=== PATIENT | female | born 1950 | race African-American/Black ===

== ENCOUNTER 2016-05-01 03:00 | Emergency (ER) | payer MEDICARE ==
[2016-05-01] MEDS ORDERED: ACETAMINOPHEN 325 MG TABLET PO ONE (05:15)
--- NOTE | 2016-05-01 06:23 | ER Document Report ---
ED General - General Chief Complaint: Foot Pain Stated Complaint: SWOLLEN FEET Mode of Arrival: Ambulatory Information source: Patient Notes: 65-year-old female history of diabetes chronic kidney disease recent diagnosis of cellulitis which improved after Keflex in March but returned presents with complaints of bilateral lower extremity redness. Redness is limited to the heel and sore both feet is not associated with any fevers or any swelling in the extremities. Patient denies any shortness of breath difficulty breathing TRAVEL OUTSIDE OF THE [place] IN LAST 30 DAYS: No - HPI Onset: Last week Onset/Duration: Persistent Quality of pain: Burning Severity: Mild Pain Level: 1 Associated symptoms: None Exacerbated by: Movement, Walking Relieved by: Other Similar symptoms previously: Yes Recently seen / treated by doctor: Yes - Related Data Allergies/Adverse Reactions: No Known Allergies Allergy (Verified 03/22/16 11:21) Past Medical History - General Information source: Patient, Relative - Social History Smoking Status: Never Smoker Cigarette use (# per day): No Chew tobacco use (# tins/day): No Smoking Education Provided: No Family History: Reviewed & Not Pertinent - Past Medical History Cardiac Medical History: Reports: Hx Coronary Artery Disease, Hx Hypercholesterolemia, Hx Hypertension Denies: Hx Heart Attack Pulmonary Medical History: Denies: Hx Asthma, Hx Bronchitis, Hx COPD, Hx Pneumonia, Hx Tuberculosis Neurological Medical History: Reports: Hx Cerebrovascular Accident - 2011,2013. Denies: Hx Seizures Endocrine Medical History: Reports: Hx Diabetes Mellitus Type 1, Hx Diabetes Mellitus Type 2 Renal/ Medical History: Reports: Hx End Stage Renal Disease, Hx Hemodialysis - Sat, Sat, Sat Musculoskeltal Medical History: Reports Hx Arthritis - mild Psychiatric Medical History: Reports: Hx Anxiety Past Surgical History: Reports: Hx Appendectomy, Hx Cardiac Surgery - right carotid endarterectomy, Hx Tubal Ligation - Immunizations Immunizations up to date: Yes Hx Diphtheria, Pertussis, Tetanus Vaccination: Yes Review of Systems - Review of Systems Notes: REVIEW OF SYSTEMS: CONSTITUTIONAL : Denies fever, chills, or sweats. Denies recent illness. EENT: Denies eye, ear, throat, or mouth pain or symptoms. Denies nasal or sinus congestion or discharge. Denies throat, tongue, or mouth swelling or difficulty swallowing. CARDIOVASCULAR: Denies chest pain. Denies palpitations or racing or irregular heart beat. Denies ankle edema. RESPIRATORY: Denies cough, cold, or chest congestion. Denies shortness of breath, difficulty breathing, or wheezing. GASTROINTESTINAL: Denies abdominal pain or distention. Denies nausea, vomiting , or diarrhea. Denies blood in vomitus, stools, or per rectum. Denies black, tarry stools. Denies constipation. GENITOURINARY: Denies difficulty urinating, painful urination, burning, frequency, blood in urine, or discharge. FEMALE GENITOURINARY: Denies vaginal bleeding, heavy or abnormal periods, irregular periods. Denies vaginal discharge or odor. MUSCULOSKELETAL: Denies back or neck pain or stiffness. Denies joint pain or swelling. SKIN: Admits to redness of the soles of feet HEMATOLOGIC : Denies easy bruising or bleeding. LYMPHATIC: Denies swollen, enlarged glands. NEUROLOGICAL: Denies confusion or altered mental status. Denies passing out or loss of consciousness. Denies dizziness or lightheadedness. Denies headache. Denies weakness or paralysis or loss of use of either side. Denies problems with gait or speech. Denies sensory loss, numbness, or tingling. Denies seizures. PSYCHIATRIC: Denies anxiety or stress. Denies depression, suicidal ideation, or homicidal ideation. ALL OTHER SYSTEMS REVIEWED AND NEGATIVE. Dictation was performed using [employer] voice recognition software PHYSICAL EXAMINATION: GENERAL: Well-appearing, well-nourished and in no acute distress. HEAD: Atraumatic, normocephalic. EYES: Pupils equal round and reactive to light, extraocular movements intact, conjunctiva are normal. ENT: Nares patent, oropharynx clear without exudates. Moist mucous membranes. NECK: Normal range of motion, supple without lymphadenopathy LUNGS: Breath sounds clear to auscultation bilaterally and equal. No wheezes rales or rhonchi. HEART: Regular rate and rhythm without murmurs ABDOMEN: Soft, nontender, nondistended abdomen. No guarding, no rebound. No masses appreciated. Female : deferred Musculoskeletal: Normal range of motion, no pitting or edema. No cyanosis. NEUROLOGICAL: Cranial nerves grossly intact. Normal speech, normal gait. Normal sensory, motor exams PSYCH: Normal mood, normal affect. SKIN: Bilateral heel sore redness superficial abrasion of the left foot at the first metacarpal without any pus no other specific injuries noted Physical Exam - Vital signs Vitals: Temp Pulse Resp BP Pulse Ox 98.1 F 81 12 184/86 H 100 05/01/16 03:31 05/01/16 03:31 05/01/16 03:31 05/01/16 03:31 05/01/16 03:31 Course - Re-evaluation Re-evalutation: 05/01/16 07:32 Given the patient had dialysis yesterday is afebrile has no systemic signs of infection I do not believe lab work is necessary at this time. Patient will be started on antibiotics, patient is given podiatry follow-up as she has not seen a sales porter in a few years Multiple questions answered I spent 15 minutes in the room with family After performing a Medical Screening Examination, I estimate there is LOW risk for ACUTE CORONARY SYNDROME, RESPIRATORY FAILURE, SEPSIS OR MENINGITIS, thus I consider the discharge disposition reasonable. The patient and I have discussed the diagnosis and risks, and we agree with discharging home with close follow- up. We also discussed returning to the Emergency Department immediately if new or worsening symptoms occur. We have discussed the symptoms which are most concerning (e.g., changing or worsening pain, trouble swallowing or breathing, neck stiffness, fever) that necessitate immediate return. - Vital Signs Vital signs: Temp Pulse Resp BP Pulse Ox 98.2 F 73 18 174/70 H 100 05/01/16 06:40 05/01/16 06:40 05/01/16 06:40 05/01/16 06:40 05/01/16 06:40 Discharge - Discharge Clinical Impression: Chronic renal disease, stage 3, moderately decreased glomerular filtration rate (GFR) between 30-59 mL/min/1.73 square meter Cellulitis Qualifiers: Site of cellulitis: extremity Site of cellulitis of extremity: lower extremity Laterality: unspecified laterality Qualified Code(s): L03.119 - Cellulitis of unspecified part of limb Hypertension Qualifiers: Hypertension type: essential hypertension Qualified Code(s): I10 - Essential ( primary) hypertension Condition: Stable Disposition: HOME, SELF-CARE Instructions: Cellulitis ([facility]), Control of Diabetes During Illness ([facility]) Additional Instructions: Return immediately if there are any other concerns Prescriptions: Doxycycline Hyclate 100 mg PO BID #14 capsule Hydrocodone/Acetaminophen [[place] 5-325 mg Tablet] 1 tab PO Q6 #10 tablet Referrals: JACQUELINE FARIA MD [Primary Care Provider] - Follow up as needed MONICO SELBY DPM [ACTIVE STAFF] - Follow up tomorrow
[2016-05-01] MEDS ORDERED: DOXYCYCLINE HYCLATE 100 MG TABLET PO ONE (06:43)
[2016-05-01 06:45] VITALS: BP 174/70
== END 2016-05-01 06:55 | disposition home or self-care (01) ==
LOC: ER 03:00
DX: I12.9 Hypertensive chronic kidney disease with stage 1 through stage 4 chronic kidney disease, or unspecified chronic kidney disease (principal); N18.3 Chronic kidney disease, stage 3 (moderate); L03.119 Cellulitis of unspecified part of limb; I25.10 Atherosclerotic heart disease of native coronary artery without angina pectoris; E78.00 Pure hypercholesterolemia, unspecified; E11.9 Type 2 diabetes mellitus without complications; Z86.73 Personal history of transient ischemic attack (TIA), and cerebral infarction without residual deficits; Z99.2 Dependence on renal dialysis
CPT/HCPCS: 99283; A9270 ×2

== ENCOUNTER 2016-05-04 00:04 | Emergency (ER) | payer MEDICARE ==
[2016-05-04] MEDS ORDERED: HYDRALAZINE HCL 50 MG TABLET PO ONE (03:09)
--- NOTE | 2016-05-04 03:20 | ER Document Report ---
ED General - General Chief Complaint: Abnormal Lab Results Stated Complaint: ABNORMAL LABS Mode of Arrival: Ambulatory Information source: Patient Notes: Patient is a 65-year-old -[place] female who presents to the ER today for positive blood culture result of gram-negative rods. Patient was called by her nurse's aides teacher rd and told to come to the emergency department because of this culture results. Apparently they avinash the blood cultures while she was in dialysis on Saturday (today is Saturday am) and was having chills and nausea and vomiting. Patient was recently diagnosed with cellulitis of the left foot and has been on doxycycline for 3 days. She denies any other symptoms, states that she has felt better since 2 days ago. She does have dialysis this morning. TRAVEL OUTSIDE OF THE [place] IN LAST 30 DAYS: No - Related Data Allergies/Adverse Reactions: No Known Allergies Allergy (Verified 05/04/16 00:13) Past Medical History - General Information source: Patient, Relative - Social History Smoking Status: Never Smoker Chew tobacco use (# tins/day): No Frequency of alcohol use: None Drug Abuse: None Family History: Reviewed & Not Pertinent Patient has suicidal ideation: No Patient has homicidal ideation: No - Past Medical History Cardiac Medical History: Reports: Hx Coronary Artery Disease, Hx Hypercholesterolemia, Hx Hypertension Denies: Hx Heart Attack Pulmonary Medical History: Denies: Hx Asthma, Hx Bronchitis, Hx COPD, Hx Pneumonia, Hx Tuberculosis Neurological Medical History: Reports: Hx Cerebrovascular Accident - 2011,2013. Denies: Hx Seizures Endocrine Medical History: Reports: Hx Diabetes Mellitus Type 1, Hx Diabetes Mellitus Type 2 Renal/ Medical History: Reports: Hx End Stage Renal Disease, Hx Hemodialysis - Sat, Sat, Sat Musculoskeltal Medical History: Reports Hx Arthritis - mild Psychiatric Medical History: Reports: Hx Anxiety Past Surgical History: Reports: Hx Appendectomy, Hx Cardiac Surgery - right carotid endarterectomy, Hx Hysterectomy, Hx Tubal Ligation - Immunizations Immunizations up to date: Yes Hx Diphtheria, Pertussis, Tetanus Vaccination: Yes Review of Systems - Review of Systems Constitutional: See HPI EENT: No symptoms reported Cardiovascular: No symptoms reported Respiratory: No symptoms reported Gastrointestinal: No symptoms reported Genitourinary: No symptoms reported Female Genitourinary: No symptoms reported Musculoskeletal: No symptoms reported Skin: See HPI Hematologic/Lymphatic: No symptoms reported Neurological/Psychological: No symptoms reported Physical Exam - Vital signs Vitals: Temp Pulse Resp BP Pulse Ox 98.5 F 94 20 190/98 H 99 05/04/16 00:13 05/04/16 00:13 05/04/16 00:13 05/04/16 00:13 05/04/16 00:13 - Notes Notes: PHYSICAL EXAMINATION: GENERAL: chronically ill appearing, appears older than stated age, but not acutely ill and in no acute distress. HEAD: Atraumatic, normocephalic. EYES: Pupils equal round and reactive to light, extraocular movements intact, sclera anicteric, conjunctiva are normal. ENT: ear canals without erythema or foreign body, TMs pearly jansen with good bony landmarks, nares patent, oropharynx clear without exudates. Moist mucous membranes. NECK: Normal range of motion, supple without lymphadenopathy LUNGS: CTAB and equal. No wheezes rales or rhonchi. HEART: Regular rate and rhythm without murmurs ABDOMEN: Soft, no tenderness. No guarding, no rebound EXTREMITIES: Normal range of motion, no pitting edema. No cyanosis. NEUROLOGICAL: Cranial nerves grossly intact. Normal sensory/motor exams. PSYCH: Normal mood, normal affect. SKIN: Warm, Dry, normal turgor, erythema to left heel and ball of foot only, no pitting or non-pitting edema, not tender to palpation, no drainage Course - Re-evaluation Re-evalutation: 05/04/16 06:46 Patient's labwork is actually at her baseline with a white blood cell count is not elevated. She is afebrile. She came in hypertensive the blood pressure of 200/104, however did not take her blood pressure medication today. She was given a dose of her blood pressure medication here, hydralazine 50 mg which brought her blood pressure down to 155/75. She has dialysis this morning, I would like for her to make it to that. She is only been on doxycycline for 3 days. I advised that she continues that for her cellulitis. Her cellulitis does not appear to be worse than exam documented 3 days ago when she was diagnosed with it. 05/04/16 06:46 05/04/16 07:07 urine negative for infection. At this time pt appears very well, paged Dr. Ibarra, waiting ethylbenzene converter operator back. blood cultures have been taken here and are pending. I will add Keflex to regimen. 05/04/16 07:34 Dr. bIarra called back, states he wants to give her ceftazidine in dialysis today instead of oral keflex. Family agrees with plan. 05/04/16 07:36 - Vital Signs Vital signs: Temp Pulse Resp BP Pulse Ox 98.6 F 77 14 155/52 H 97 05/04/16 05:59 05/04/16 05:59 05/04/16 05:59 05/04/16 05:59 05/04/16 05:59 - Laboratory Result Diagrams: 05/04/16 04:21 05/04/16 04:21 Laboratory results interpreted by me: 05/04/16 05/04/16 05/04/16 04:21 04:21 06:22 WBC 3.1 L Plt Count 120 L Monocytes % 13.4 H Sodium 135.6 L Chloride 97 L BUN 67 H Creatinine 6.76 H Est GFR ( Amer) 7 L Est GFR (Non-Af Amer) 6 L Urine Protein >=500 H Urine Blood SMALL H Discharge - Discharge Clinical Impression: Cellulitis Qualifiers: Site of cellulitis: extremity Site of cellulitis of extremity: lower extremity Laterality: unspecified laterality Qualified Code(s): L03.119 - Cellulitis of unspecified part of limb Condition: Stable Disposition: HOME, SELF-CARE Instructions: Cellulitis ([facility]) Additional Instructions: Continue doxycycline. Return immediately for any new or worsening symptoms. Follow up with primary care provider, call tomorrow to make followup appointment.
[2016-05-04 04:44] LABS: ABSOLUTE LYMPHOCYTES (AUTO) 0.8 10^3/uL (0.5-4.7); ABSOLUTE MONOCYTES (AUTO) 0.4 10^3/uL (0.1-1.4); ABSOLUTE NEUT (AUTO) 1.9 10^3/uL (1.7-8.2); BASOPHILS % (AUTO) 0.8 % (0-2); EOSINOPHILS % (AUTO) 0.7 % (0-6); HEMATOCRIT 37.4 % (36.0-47.0); HEMOGLOBIN 12.9 g/dL (12.0-15.5); HGB HCT DIFFERENCE 1.3; LYMPHOCYTES % (AUTO) 26.1 % (13-45); MEAN CORPUSCULAR HEMOGLOBIN 30.8 pg (27.0-33.4); MEAN CORPUSCULAR HGB CONC 34.4 g/dL (32.0-36.0); MEAN CORPUSCULAR VOLUME 90 fl (80-97); MONOCYTES % (AUTO) 13.4 % (3-13); RED BLOOD COUNT 4.18 10^6/uL (3.72-5.28); WHITE BLOOD COUNT 3.1 10^3/uL (4.0-10.5)
[2016-05-04 04:48] LABS: ALANINE AMINOTRANSFERASE 27 U/L (9-52); ALBUMIN 3.9 g/dL (3.5-5.0); ALKALINE PHOSPHATASE 68 U/L (38-126); ANION GAP 12 (5-19); ASPARTATE AMINO TRANSFERASE 29 U/L (14-36); BILIRUBIN,TOTAL 0.4 mg/dL (0.2-1.3); BLOOD UREA NITROGEN 67 mg/dL (7-20); CALCIUM 9.1 mg/dL (8.4-10.2); CARBON DIOXIDE 27 mmol/L (22-30); CHLORIDE 97 mmol/L (98-107); CREATININE RESULT 6.76 mg/dL (0.52-1.25); GLUCOSE 100 mg/dL (75-110); POTASSIUM 4.8 mmol/L (3.6-5.0); SODIUM 135.6 mmol/L (137-145); TOTAL PROTEIN 6.7 g/dL (6.3-8.2)
[2016-05-04 06:47] LABS: APPEARANCE,URINE SLIGHTLY-CLOUDY; BILIRUBIN,URINE NEGATIVE (NEGATIVE); GLUCOSE, URINE NEGATIVE (NEGATIVE); KETONES,URINE NEGATIVE (NEGATIVE); LEUKOCYTE ESTERASE,URINE NEGATIVE (NEGATIVE); NITRITE,URINE NEGATIVE (NEGATIVE); PROTEIN,URINE >=500 mg/dL (NEGATIVE); UROBILINOGEN,URINE NEGATIVE mg/dL (<2.0)
[2016-05-04 08:35] VITALS: BP 168/56
== END 2016-05-04 07:58 | disposition home or self-care (01) ==
LOC: ER 00:04
DX: L03.116 Cellulitis of left lower limb (principal); R11.2 Nausea with vomiting, unspecified; R68.83 Chills (without fever); E11.22 Type 2 diabetes mellitus with diabetic chronic kidney disease; I12.0 Hypertensive chronic kidney disease with stage 5 chronic kidney disease or end stage renal disease; N18.6 End stage renal disease; Z99.2 Dependence on renal dialysis; I25.10 Atherosclerotic heart disease of native coronary artery without angina pectoris; Z86.73 Personal history of transient ischemic attack (TIA), and cerebral infarction without residual deficits; Z79.899 Other long term (current) drug therapy
CPT/HCPCS: 99283; 36415; 87040; 87086; 85025; 80053; 81001; A9270

== ENCOUNTER 2016-05-04 12:39 | Day surgery (SDC) | payer MEDICARE ==
[~2016-05-04 12:39] MED LIST: BACITRACIN INJ 50,000 UNIT VIAL ONE; BUPIVACAINE HCL 0.25 % INJ/PF (2.5 MG/1 ML) 30 ML VIAL ONE; GLYCOPYRROLATE INJ 0.4 MG/2 ML VIAL ONE; LIDOCAINE 0.5% INJ-PF (5 MG/ML) 50 ML SDV ONE; LIDOCAINE 2% INJ-PF (20 MG/ML) 10 ML AMPUL ONE; ONDANSETRON HCL INJ/PF 4 MG/2 ML SDV ONE
[2016-05-04] MEDS ORDERED: CEFAZOLIN INJ 1 GM VIAL ONE (13:29)
[2016-05-04] MEDS: DEXTROSE 50%-WATER 25 GM/50 ML DISP.SYRIN IV ONE ×2 (15:20→15:43)
[2016-05-04] MEDS ORDERED: KETAMINE HCL INJ 500 MG/10 ML VIAL ONE (15:21)
[2016-05-04] MEDS ORDERED: MIDAZOLAM 2 MG/2 ML INJ ONE (15:21)
[2016-05-04] MEDS ORDERED: FENTANYL CITRATE INJ/PF 100 MCG/2 ML AMPUL ONE (15:21)
[2016-05-04] MEDS ORDERED: DEXMEDETOMIDINE INJ 80 MCG/20 ML VIAL IV ONE (15:22)
[2016-05-04] MEDS ORDERED: PROPOFOL INJ 200 MG/20 ML VIAL IV ONE (15:22)
--- NOTE | 2016-05-04 16:19 | PDOC H&P ---
General Chief Complaint: Septicemia, positive blood culture. Infected Perm cath. - Diagnosis (1) Bacteremia associated with intravascular line Is this a Current Diagnosis?: Yes (2) ESRD (end stage renal disease) on dialysis Is this a Current Diagnosis?: Yes (4) Diabetes mellitus type 2, controlled Is this a Current Diagnosis?: Yes - Current Medications/Allergies Home Medications: Aspirin [Aspirin 81 mg Chewable Tablet] 81 mg PO DAILY 06/04/14 Hydralazine HCl [Apresoline 50 mg Tablet] 100 mg PO TID 06/04/14 Sevelamer Carbonate [Renvela] 800 mg PO TID 01/03/16 Allergies/Adverse Reactions: No Known Allergies Allergy (Verified 05/04/16 00:13) Past Medical History Cardiac Medical History: Reports: Coronary Artery Disease, Hyperlipidema, Hypertension Denies: Myocardial Infarction Pulmonary Medical History: Denies: Asthma, Bronchitis, Chronic Obstructive Pulmonary Disease (COPD), Pneumonia, Tuberculosis Neurological Medical History: Denies: Seizures Endocrine Medical History: Reports: Diabetes Mellitus Type 1, Diabetes Mellitus Type 2 Renal/ Medical History: Reports: End Stage Renal Disease Musculoskeltal Medical History: Reports: Arthritis - mild Hematology: Denies: Anemia Past Surgical History Past Surgical History: Reports: Appendectomy, Hysterectomy, Tubal Ligation Family History Family History: Reviewed & Not Pertinent Parental Family History Reviewed: Yes Children Family History Reviewed: No Sibling(s) Family History Reviewed.: No Social History Smoking Status: Never Smoker Frequency of Alcohol Use: None Hx Recreational Drug Use: No Drugs: None Hx Prescription Drug Abuse: No Physical Exam Vital Signs: Temp Pulse Resp BP Pulse Ox 98.3 F 78 16 196/86 H 100 05/04/16 13:08 05/04/16 13:08 05/04/16 13:08 05/04/16 13:08 05/04/16 13:08 Intake & Output 05/03/16 05/04/16 05/05/16 06:59 06:59 06:59 Intake Total 0 Balance 0 Additional comments: . A WDWN lady. Mildly increased body habitus. No acute distress. Eyes membranes is pink and moist, sclerae anicteric. Respiratory no shortness of breath. Breath sounds are normal and equal bilaterally. Chest: A right-sided PermCath is noted. The cuff is out in this supports. He of infection. No gross purulence or erythema. Cardiac: Heart sounds 1 and 2 heard, no murmurs. Upper extremities show normal range of movement and pulsatile to the radials. Normal capillary refill. A cephalic to brachial fistula is appreciated. In the left upper extremity. Somewhat firm, due to wall thickness. Good bruit.. Psychiatric the patient is alert, oriented, judgment, memory, insight normal Impression/Plan Impression: #1 bacteremia associated with partly dislodged permacatheter. #2 end-stage renal disease on hemodialysis. #3 diabetes mellitus type II. #4 hypertension. Plan: The plan is to insert a new perm catheter, hopefully through the left internal jugular and remove old. As a last resort remain E to replace the existing site. This is somewhat less desirable. At any rate the patient will need to be on IV antibiotic for several weeks for this potentially serious infection. The risks, benefits, expected outcome and alternatives are related to the patient and her daughters. Her questions and concerns addressed and he wished to proceed. Parallel plans for insertion of a graft in the left arm fistula to compensate for a really unusual finding of a thick wall making it unusable currently.
[2016-05-04] MEDS ORDERED: VANCOMYCIN HCL INJ 1000 MG VIAL ONE (16:59)
[2016-05-04] MEDS ORDERED: MEPERIDINE HCL/PF INJ 25 MG/1 ML DISP.SYRIN IV PRN (17:18)
[2016-05-04] MEDS ORDERED: OXYCODONE-ACETAMINOPHEN 5-325 MG TABLET PO PRN ×2 (17:18)
[2016-05-04] MEDS ORDERED: FENTANYL CITRATE INJ/PF 100 MCG/2 ML AMPUL IV PRN ×3 (17:18)
[2016-05-04] MEDS ORDERED: MORPHINE SULFATE 10 MG/ML INJ IV PRN (17:18)
[2016-05-04] MEDS ORDERED: PROMETHAZINE HCL INJ 25 MG/1 ML VIAL IV PRN ×2 (17:18)
[2016-05-04] MEDS ORDERED: DIPHENHYDRAMINE HCL 50 MG/ML VIAL IV PRN (17:18)
--- NOTE | 2016-05-04 18:17 | PDOC DISCHARGE SUMMARY ---
Discharge Summary (SDC) - Discharge Final Diagnosis: #1 sepsis possibly associated with intravascular catheter. #2 end-stage renal disease on hemodialysis. #3 beat is mellitus type II. #4 hypertension. Date of Surgery: 05/04/16 Discharge Date: 05/04/16 Condition: Poor Treatment or Instructions: #1 activities within moderation encouraged. #2 follow up in my office by appointment in about 1 week. Call for appointment. #3 the wounds covered clean and dry until office visit. #4 hold off on school/work until evaluation in office. #5 may shower in 48 hours, keep operated area as dry as possible. #6 discharge from [facility] to when ASU criteria met. #7 medications per medication reconciliation sheet. Referrals: JACQUELINE FARIA MD [Primary Care Provider] - RACHID BARBA MD [ACTIVE STAFF] - Discharge Diet: Other (Comments) - Renal Respiratory Treatments at Home: Deep Breathing/Coughing Discharge Activity: Activity As Tolerated Report the Following to Your Physician Immediately: Shortness of Breath, Unusual Bleeding
--- NOTE | 2016-05-04 18:23 | Operative Report ---
Operative Report DATE OF SURGERY: 05/04/16 PREOPERATIVE DIAGNOSIS: #1 bacteremia associated with intravascular catheter. # 2 end-stage renal disease on hemodialysis. #3 diabetes mellitus type II. #4 hypertension. POSTOPERATIVE DIAGNOSIS: #1 bacteremia associated with intravascular catheter. #2 end-stage renal disease on hemodialysis. #3 diabetes mellitus type II. #4 hypertension. OPERATION: #1 ultrasound guided access into left internal jugular vein. #2 insertion of PermCath catheter via established assess in the right internal jugular vein. #3 angiogram and interpretation. SURGEON: RACHID WEBB SHEAR SETTER: none ANESTHESIA: LMAC TISSUE REMOVED OR ALTERED: None COMPLICATIONS: None ESTIMATED BLOOD LOSS: 5 mL. INTRAOPERATIVE FINDINGS: Of an extremely small left internal jugular vein. Diligent attempts at access were completely on X unsuccessful. Even with a fluid bolus and the patient in Trendelenburg the vein was now more than diameter and virtually impossible to see just above the clavicle. The patient really has no great options. She has cellulitis in the lower extremities which make a femoral catheter even more than usually risky. The right internal jugular vein was therefore used for access. The exit site was kept well away from the previous exit site. Patient will be kept on antibiotics for several weeks in the hope of preserving this catheter while a more robust access is obtained. The tip of the catheter was well down in the right atrium. Of note flow through the right atrium ventricle and pulmonary outflow tract were unusually slow suggesting myocardial dysfunction. PROCEDURE: After obtaining informed consent, the patient was taken to the operating room and positioned supine. The left neck and around the surrounding areas were prepared with chlorhexidine and draped out with sterile linen. Local anesthesia was obtained adjacent to the sterilely sheathed ultrasound probe and access attempted with a micropuncture needle. Even with the patient in Trendelenburg and after fluid bolus it proved impossible to gain robust access. This was attempted for a solid for 30 minutes. At this time this site was abandoned. The right neck and chest were prepared with chlorhexidine and draped out with sterile linen. This was done so as to isolate the existing catheter right and a bridge of skin well away from the operative site. After the " universal timeout", in which it was verified that the patient continued to receive antibiotic, the procedure commenced. e. Access into the right internal jugular vein was obtained directly through an incision over the access site to the neck. Dissection proceeded down to the catheter which was transected. The proximal portion replaced with a 0.035 guidewire. Appropriate introducer sheath was now placed over the guidewire.. A 23 cm long split catheter was now positioned over the chest and an exit site marked and locally anesthetized ,the catheter was placed between the 2 incisions. Proximally, the catheter was now positioned using a peel-away sheath, after dilation. Easy ingress of heparinized solution and egress of blood obtained through both ports. A completion angiogram was done by injecting contrast. The findings were as dictated. The neck incision was now closed using interrupted 3-0 PDS to the subcutaneous tissues, the catheter was anchored at the exit site using 3-0 PDS. A Biopatch device was now placed adjacent to the catheter. Dressings were applied and the procedure concluded. Copies of the dictated operative report for Dr. Rachid Hylton MD.concluded. Copies of the dictated operative report for Dr. Rachid Hylton MD.
[2016-05-04 22:09] VITALS: BP 196/86
== END 2016-05-04 23:42 | disposition home or self-care (01) ==
LOC: OROUT 12:39 → 4W 19:38 → OROUT 23:42
PROVIDERS: ATTEND Surgery
PROC: 05HN33Z Insertion of Infusion Device into Left Internal Jugular Vein, Percutaneous Approach (ICD-10-PCS; principal; 2016-05-04 15:00)
DX: I12.0 Hypertensive chronic kidney disease with stage 5 chronic kidney disease or end stage renal disease (principal); N18.6 End stage renal disease; A41.53 Sepsis due to Serratia; Z99.2 Dependence on renal dialysis; Z79.82 Long term (current) use of aspirin; Z79.899 Other long term (current) drug therapy; I25.110 Atherosclerotic heart disease of native coronary artery with unstable angina pectoris; E87.5 Hyperkalemia; E10.9 Type 1 diabetes mellitus without complications
CPT/HCPCS: 36558; 99283; 36415; 87040; 87086; 87070; 82962; 85025; 87077; 80053; 81001; 87186; 71010; 77001; C1713; C1752; Q9967; J2250; J3490 ×6; J0690; A9270; J2405; J2704; J3370; J1644; 532; J3010

== ENCOUNTER → 2016-05-24 | Outpatient (CLI) | payer MEDICARE ==
--- NOTE | 2016-05-24 12:47 | XCELERA REPORT ---
[address] [address] Lower Extremity Arterial Evaluation Name: JESSI CAMARGO Age: 65 yrs Gender: Female : 1950 Patient Status: Outpatient Patient Location: Study Date: 05/24/2016 11:31 AM Procedure: A color flow and duplex scan of the lower extremity arteries was performed bilaterally with velocity and waveform anaylsis. Reason For Study: BLE ATHEROSCLEROSIS I70.90 Ordering Physician: RACHID BARBA Performed By: José Pathak Measurements and Calculations Right Left HOT DOG VENDOR PSV 146.1 118.0 cm/sec Prox PFA PSV -120.1 cm/sec Prox SFA PSV 202.0 -50.2 cm/sec Mid SFA PSV -65.4 -72.0 cm/sec Dist SFA PSV -97.4 -42.2 cm/sec Prox Pop A PSV 79.4 49.9 cm/sec Dist JACIEL PSV 45.4 cm/sec Prox CUT OUT WORKER PSV 64.0 cm/sec Ric Pedis PSV 47.1 32.3 cm/sec Right Side Arterial Evaluation Normal velocity, waveform and triphasic flow are present, in the Common Femoral artery. Biphasic then occluded with monophasic reconstitution in the Femoral. Monophasic, attenuated flow in the Anterior Tibial artery, no flow in the Posterior Tibial artery. The ankle-brachial index was not done. 0cclusion is noted at the Femoral artery. With sequential disease. Left Side Arterial Evaluation Normal velocity, waveform and triphasic flow are present, in the Common Femoral artery. Monophasic in the Femoral. Monophasic, severely attenuated flow in the Dorsalis pedis artery, no flow in the Posterior Tibial artery. The ankle-brachial index was not done. 0cclusion is noted at the Femoral artery. With severe sequential disease. Interpretation Summary Severe hemodynamically significant lesions in the bilateral lower extremities, on duplex imaging, at rest. Much worse on the left, consistent with limb threat. : RACHID BARBA > Rachid Barba
== END ==
LOC: SP 11:11
PROVIDERS: ATTEND Surgery
DX: I70.90 Unspecified atherosclerosis (principal)
CPT/HCPCS: 93925

== ENCOUNTER → 2016-09-06 | Outpatient (CLI) | payer MEDICARE, OTHER ==
--- NOTE | 2016-09-07 16:24 | XCELERA REPORT ---
[address] [address] Lower Extremity Arterial Evaluation Name: JESSI CAMARGO Age: 66 yrs Gender: Female : 1950 Patient Status: Outpatient Patient Location: Study Date: 09/06/2016 03:17 PM Procedure: A color flow and duplex scan of the lower extremity arteries was performed bilaterally with velocity and waveform anaylsis. Reason For Study: PAD Ordering Physician: KING RODRIGUEZ Performed By: José Pathak Measurements and Calculations Right Left COAL INSPECTOR PSV 96.2 129.5 cm/sec Prox PFA PSV -205.4 -141.4 cm/sec Prox SFA PSV 114.1 158.1 cm/sec Mid SFA PSV -49.3 -61.6 cm/sec Dist SFA PSV -101.3 -48.3 cm/sec Dist Pop A PSV 39.3 34.5 cm/sec Prox JACIEL PSV 11.4 cm/sec Dist JACIEL PSV 34.2 15.7 cm/sec Ric Pedis PSV 28.1 7.9 cm/sec Right Side Arterial Evaluation Normal velocity and triphasic waveforms noted in the Common Femoral artery Occluded Femoral with monophasic reconstitution to the Anterior Tibial artery, with spectral broadening, moderately maintained velocity. No flow in the Posterior tibial artery . Occlusion at the Femoral artery. With sequential disease. Ankle Brachial index was not done. Left Side Arterial Evaluation Normal velocity and triphasic waveforms noted in the Common Femoral artery Biphasic in the Femoral with monophasic reconstitution to the Anterior Tibial artery, with spectral broadening, poorly maintained velocity, trickle flow. No flow in the Posterior tibial artery . Occlusion at the Femoral artery. With sequential disease. Ankle Brachial index was not done. Interpretation Summary Severe hemodynamically significant lesions in the bilateral lower extremities, on duplex imaging, at rest. Some improvement on left, compared with study of 05/24/16. Still severe though. : KING RODRIGUEZ > Rick Hylton
== END ==
LOC: SP 15:00
PROVIDERS: ATTEND Surgery Vascular Surgery
DX: I70.222 Atherosclerosis of native arteries of extremities with rest pain, left leg (principal); I70.221 Atherosclerosis of native arteries of extremities with rest pain, right leg
CPT/HCPCS: 93925

== ENCOUNTER 2016-10-04 16:21 | Emergency (ER) | payer MEDICARE, OTHER ==
--- NOTE | 2016-10-04 16:50 | RADIOLOGY REPORT (SQ) ---
EXAM DESCRIPTION: CHEST SINGLE VIEW COMPLETED DATE/TIME: 10/04/2016 4:42 pm REASON FOR STUDY: bed 7 stroke alert COMPARISON: 05/04/2016 EXAM PARAMETERS: NUMBER OF VIEWS: One view. TECHNIQUE: Single frontal radiographic view of the chest acquired. RADIATION DOSE: NA LIMITATIONS: None. FINDINGS: LUNGS AND PLEURA: No opacities, masses or pneumothorax. No pleural effusion. MEDIASTINUM AND HILAR STRUCTURES: No masses. Contour normal. HEART AND VASCULAR STRUCTURES: Heart normal in size. Normal vasculature. BONES: No acute findings. HARDWARE: Left axillary clips. OTHER: Stable position of right-sided central line. IMPRESSION: NO ACUTE RADIOGRAPHIC FINDING IN THE CHEST. TECHNICAL DOCUMENTATION: JOB ID: [id number]
--- NOTE | 2016-10-04 17:08 | RADIOLOGY REPORT (SQ) ---
EXAM DESCRIPTION: CT HEAD WITHOUT COMPLETED DATE/TIME: 10/04/2016 4:46 pm REASON FOR STUDY: bed 7 stroke alert COMPARISON: 10/09/2015 TECHNIQUE: Axial images acquired through the brain without intravenous contrast. Images reviewed wi th bone, brain and subdural windows. Images stored on PACS. All CT scanners at this facility use dose modulation, iterative reconstruction, and/or weight based d osing when appropriate to reduce radiation dose to as low as reasonably achievable (ALARA). [facility]: Dose Right [facility]: CareDose [facility]: Dose Right [facility]: Teradose 4D [facility]: NaviExpert RADIATION DOSE: 64.61mGy. LIMITATIONS: None. FINDINGS: VENTRICLES: Prominent. CEREBRUM: Focal area of encephalomalacia seen in the right frontal lobe, similar to prior studies. N o masses. No hemorrhage. No midline shift. Areas of low density in the white matter most likely du e to chronic micro-vascular ischemic change. No evidence for acute infarction. CEREBELLUM: No masses. No hemorrhage. No alteration of density. No evidence for acute infarction. EXTRAAXIAL SPACES: Age-related involutional change. No fluid collections. No masses. ORBITS AND GLOBE: No intra- or extraconal masses. Normal contour of globe without masses. CALVARIUM: No fracture. PARANASAL SINUSES: No fluid or mucosal thickening. SOFT TISSUES: No mass or hematoma. OTHER: No other significant finding. IMPRESSION: 1. No acute intracranial abnormality identified. 2. Old area of encephalomalacia in the right frontal lobe, likely related from the prior infarct. C hronic microvascular ischemic disease changes noted in the supratentorial white matter. Age-related brain matter volume loss. COMMENT: Pertinent positive or negative findings of the imaging study reported as a CRITICAL EXAM to ADDISON ASHRAF MD at17:00 on 10/04/2016.Category of Critical Exam: 3 TECHNICAL DOCUMENTATION: JOB ID: [id number] Quality ID # [id number]: Final reports with documentation of one or more dose reduction techniques (e.g., Au tomated exposure control, adjustment of the mA and/or kV according to patient size, use of iterative reconstruction technique) 2010 [employer]- All Rights Reserved
[2016-10-04] MEDS ORDERED: TRAMADOL HCL 50 MG TABLET PO ONE (18:04)
--- NOTE | 2016-10-04 18:10 | ER Document Report ---
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 She was discharged from [facility] 3 days ago after she had balloons in her left lower leg arteries to help open the arteries up. She was started on oxycodone. Since then, she has had confusion. Her home nurse saw her for the first time today and was concerned that she was having a stroke due to her mental status changes. She was sent to the ER for further evaluation and workup. A full dose of dialysis yesterday, but did not take her blood pressure medications today. Patient denies headache, numbness, tingling, chest pain, shortness of breath, nausea, vomiting, abdominal pain or leg swelling. TRAVEL OUTSIDE OF THE [place] IN LAST 30 DAYS: No - Related Data Allergies/Adverse Reactions: No Known Allergies Allergy (Verified 10/04/16 16:25) Past Medical History - General Information source: Relative - Daughter - Social History Smoking Status: Unknown if Ever Smoked Family History: Reviewed & Not Pertinent Patient has suicidal ideation: No Patient has homicidal ideation: No - Past Medical History Cardiac Medical History: Reports: Hx Coronary Artery Disease, Hx Hypercholesterolemia, Hx Hypertension Denies: Hx Heart Attack Pulmonary Medical History: Denies: Hx Asthma, Hx Bronchitis, Hx COPD, Hx Pneumonia, Hx Tuberculosis Neurological Medical History: Reports: Hx Cerebrovascular Accident - 2011,2013. Denies: Hx Seizures Endocrine Medical History: Reports: Hx Diabetes Mellitus Type 1, Hx Diabetes Mellitus Type 2 Renal/ Medical History: Reports: Hx End Stage Renal Disease, Hx Hemodialysis - Mon, Wed, Fri. Denies: Hx Peritoneal Dialysis Musculoskeltal Medical History: Reports Hx Arthritis - mild Psychiatric Medical History: Reports: Hx Anxiety Past Surgical History: Reports: Hx Appendectomy, Hx Cardiac Surgery - right carotid endarterectomy, Hx Hysterectomy, Hx Tubal Ligation - Immunizations Immunizations up to date: Yes Hx Diphtheria, Pertussis, Tetanus Vaccination: Yes Review of Systems - Review of Systems Notes: REVIEW OF SYSTEMS: CONSTITUTIONAL: -fevers, -chills EENT: -eye pain, -difficulty swallowing, -nasal congestion CARDIOVASCULAR:-chest pain, -syncope. RESPIRATORY: -cough, -SOB GASTROINTESTINAL: -abdominal pain, - nausea, -vomiting, -diarrhea GENITOURINARY: -dysuria, -hematuria MUSCULOSKELETAL: +chronic left foot pain, -back pain, -neck pain SKIN: -rash or skin lesions. HEMATOLOGIC: -easy bruising or bleeding. LYMPHATIC: -swollen, enlarged glands. NEUROLOGICAL: +altered mental status, -headache, -focal neurologic symptoms PSYCHIATRIC: -anxiety, -depression. ALL OTHER SYSTEMS REVIEWED AND NEGATIVE. Physical Exam - Vital signs Vitals: Resp Pulse Ox 16 98 10/04/16 16:37 10/04/16 16:37 - Notes Notes: PHYSICAL EXAMINATION: GENERAL: Well-appearing, well-nourished and in no acute distress. HEAD: Atraumatic, normocephalic. EYES: Pupils equal round and reactive to light, extraocular movements intact, sclera anicteric, conjunctiva are normal. ENT: nares patent, oropharynx clear without exudates. Moist mucous membranes. NECK: Normal range of motion, supple without lymphadenopathy LUNGS: Breath sounds clear to auscultation bilaterally and equal. No wheezes rales or rhonchi. HEART: Regular rate and rhythm without murmurs ABDOMEN: Soft, nontender, normoactive bowel sounds. No guarding, no rebound. No masses appreciated. EXTREMITIES: Tender left foot, warm extremities, decreased left DP and PT pulses NEUROLOGICAL: Cranial nerves grossly intact. Normal sensory and motor exams. 5/ 5 strength in all 4 extremities. PSYCH: Normal mood, normal affect. SKIN: Warm, Dry, normal turgor, no rashes or lesions noted. Course - Re-evaluation Re-evalutation: Patient symptoms are not consistent with an acute stroke. Her symptoms are ongoing for the past 3 days and there is no focality to her symptoms. Stroke alert was canceled. Suspect that her mental status changes are from her new narcotics that she was started on after her surgery this week. Pt is much more alert upon discharge. Labs, urine, CT Head and CXR do not show any concerning abnormalities. Pt is due for dialysis tomorrow. Will have her f/u at her PMD. Given strict return precautions and she understands. - Vital Signs Vital signs: Temp Pulse Resp BP Pulse Ox 15 186/119 H 96 10/04/16 18:00 10/04/16 17:39 10/04/16 18:00 - Laboratory Result Diagrams: 10/04/16 18:50 10/04/16 18:50 Laboratory results interpreted by me: 10/04/16 10/04/16 10/04/16 18:50 18:50 19:09 RBC 3.61 L Hgb 11.1 L Hct 33.2 L Band Neutrophils % 1 L Sodium 135.4 L Chloride 96 L BUN 37 H Creatinine 6.15 H Est GFR ( Amer) 8 L Est GFR (Non-Af Amer) 7 L AST 42 H Creatine Kinase 398 H Urine Protein >=500 H Urine Blood SMALL H - Diagnostic Test Radiology reviewed: Image reviewed, Reports reviewed Radiology results interpreted by me: CT Head: NAD - EKG Interpretation by Me EKG shows normal: Sinus rhythm, [place], Intervals, QRS Complexes, ST-T Waves When compared to previous EKG there are: No significant change Discharge - Discharge Clinical Impression: Altered mental state Qualifiers: Altered mental status type: unspecified Qualified Code(s): R41.82 - Altered mental status, unspecified Hypertension Qualifiers: Hypertension type: unspecified secondary hypertension Qualified Code(s): I15.9 - Secondary hypertension, unspecified; I15 - Secondary hypertension Condition: Stable Disposition: HOME, SELF-CARE Additional Instructions: Your labs, urine, CT head and chest x-ray did not show any concerning abnormalities. Your symptoms of confusion may be related to your oxycodone and tramadol use. Follow-up with your primary care physician this week to have your symptoms rechecked. NORMAL EXAM AND WORKUP: At this time, your examination and workup show no significant abnormality. No significant abnormal physical findings were noted. All laboratory, EKG, and imaging (x-ray, CT scans, ultrasound) studies that were ordered show no significant abnormality. Although your examination and all studies that were ordered showed no significant abnormal finding, there are no examinations and no studies that are 100% accurate. There is always the possibility that some abnormality could exist and not be detected with physical examination or within the limits and capabilities of laboratory and other studies. You should return or follow up as you were instructed on your visit today for further evaluation if your symptoms do not resolve. Prescriptions: Tramadol HCl 50 mg PO Q8H PRN #12 tablet PRN Reason: Referrals: JACQUELINE FARIA MD [Primary Care Provider] - Follow up as needed WOLFGANG EDOUARD MD [ACTIVE STAFF] - Follow up as needed
[2016-10-04 19:10] LABS: PROTHROMBIN TIME 13.3 SEC (11.4-15.4)
[2016-10-04 19:12] LABS: HEMATOCRIT 33.2 % (36.0-47.0); HEMOGLOBIN 11.1 g/dL (12.0-15.5); HGB HCT DIFFERENCE 0.1; MEAN CORPUSCULAR HEMOGLOBIN 30.8 pg (27.0-33.4); MEAN CORPUSCULAR HGB CONC 33.5 g/dL (32.0-36.0); MEAN CORPUSCULAR VOLUME 92 fl (80-97); RED BLOOD COUNT 3.61 10^6/uL (3.72-5.28); RED CELL DISTRIBUTION WIDTH 13.6 % (11.5-14.0); WHITE BLOOD COUNT 7.3 10^3/uL (4.0-10.5)
[2016-10-04 19:22] LABS: ALANINE AMINOTRANSFERASE 39 U/L (9-52); ALBUMIN 3.5 g/dL (3.5-5.0); ALKALINE PHOSPHATASE 87 U/L (38-126); ANION GAP 13 (5-19); ASPARTATE AMINO TRANSFERASE 42 U/L (14-36); BILIRUBIN,DIRECT 0.4 mg/dL (0.0-0.4); BILIRUBIN,TOTAL 0.4 mg/dL (0.2-1.3); BLOOD UREA NITROGEN 37 mg/dL (7-20); CALCIUM 9.8 mg/dL (8.4-10.2); CARBON DIOXIDE 26 mmol/L (22-30); CHLORIDE 96 mmol/L (98-107); CREATINE KINASE 398 U/L (30-135); CREATININE RESULT 6.15 mg/dL (0.52-1.25); GLUCOSE 102 mg/dL (75-110); POTASSIUM 4.2 mmol/L (3.6-5.0); SODIUM 135.4 mmol/L (137-145); TOTAL PROTEIN 6.6 g/dL (6.3-8.2)
[2016-10-04 19:32] LABS: BAND NEUTROPHILS % (MANUAL) 1 % (3-5); BASOPHILS % (MANUAL) 0 % (0-2); EOSINOPHILS % (MANUAL) 1 % (0-6); LYMPHOCYTES % (MANUAL) 17 % (13-45); TOTAL CELLS COUNTED 100
[2016-10-04 19:34] LABS: APPEARANCE,URINE SLIGHTLY-CLOUDY; GLUCOSE, URINE NEGATIVE (NEGATIVE)
[2016-10-04 19:35] LABS: BILIRUBIN,URINE NEGATIVE (NEGATIVE); KETONES,URINE NEGATIVE (NEGATIVE); LEUKOCYTE ESTERASE,URINE NEGATIVE (NEGATIVE); NITRITE,URINE NEGATIVE (NEGATIVE); PROTEIN,URINE >=500 mg/dL (NEGATIVE); URINE SPECIFIC GRAVITY 1.021; UROBILINOGEN,URINE NEGATIVE mg/dL (<2.0); WBC,URINE 0-1 /HPF
[2016-10-04 19:36] LABS: BACTERIA,URINE 2+ /HPF
[2016-10-04 19:37] LABS: OVALOCYTES SLIGHT; POLYCHROMASIA SLIGHT; SCHISTOCYTES SLIGHT; TOXIC GRANULATION SLIGHT; TOXIC VACUOLATION PRESENT
[2016-10-04 20:05] VITALS: BP 175/67
--- NOTE | 2016-10-05 11:04 | EKG REPORT ---
SEVERITY:- ABNORMAL ECG - SINUS RHYTHM PROBABLE LEFT ATRIAL ABNORMALITY PROBABLE LEFT VENTRICULAR HYPERTROPHY : Confirmed by: Pamela Bergman MD 05-Oct-2016 11:03:32
== END 2016-10-04 20:26 | disposition home or self-care (01) ==
LOC: ER 16:21
DX: R41.82 Altered mental status, unspecified (principal); E11.22 Type 2 diabetes mellitus with diabetic chronic kidney disease; I12.0 Hypertensive chronic kidney disease with stage 5 chronic kidney disease or end stage renal disease; N18.6 End stage renal disease; Z99.2 Dependence on renal dialysis; G89.29 Other chronic pain; M79.672 Pain in left foot; I69.919 Unspecified symptoms and signs involving cognitive functions following unspecified cerebrovascular disease; Z90.710 Acquired absence of both cervix and uterus; I25.10 Atherosclerotic heart disease of native coronary artery without angina pectoris; E78.00 Pure hypercholesterolemia, unspecified
CPT/HCPCS: 93005; 99285; 36415; 82962; 82550; 85025; 85610; 80053; 81001; 84484; 71010; 70450; 93010; A9270

== ENCOUNTER 2016-10-19 16:22 | Inpatient (IN) | payer MEDICARE, OTHER ==
[~2016-10-19 16:22] MED LIST changes: -BACITRACIN INJ 50,000 UNIT VIAL ONE; -BUPIVACAINE HCL 0.25 % INJ/PF (2.5 MG/1 ML) 30 ML VIAL ONE; -GLYCOPYRROLATE INJ 0.4 MG/2 ML VIAL ONE; -LIDOCAINE 0.5% INJ-PF (5 MG/ML) 50 ML SDV ONE; -ONDANSETRON HCL INJ/PF 4 MG/2 ML SDV ONE; +SUCCINYLCHOLINE CHLORIDE INJ 200 MG/10 ML VIAL ONE
[2016-10-19] MEDS ORDERED: NORMAL SALINE 1000 ML 1,000 ML IV ONE (17:56)
[2016-10-19] MEDS ORDERED: VANCOMYCIN HCL INJ 1000 MG VIAL IV ONE (17:58)
[2016-10-19] MEDS ORDERED: PIPERACILLIN/TAZOBACTAM 2.25 GM VIAL IV ONE (17:58)
--- NOTE | 2016-10-19 17:58 | ER Document Report ---
ED Neuro Symptoms/Deficit - General Chief Complaint: Altered Mental Status Stated Complaint: ALTERED MENTAL STATUS Time Seen by Provider: 10/19/16 17:26 Mode of Arrival: Medic Information source: Relative - daughter TRAVEL OUTSIDE OF THE [place] IN LAST 30 DAYS: No - Related Data Allergies/Adverse Reactions: No Known Allergies Allergy (Verified 10/04/16 16:25) Past Medical History - Social History Family History: Reviewed & Not Pertinent - Past Medical History Cardiac Medical History: Reports: Hx Coronary Artery Disease, Hx Hypercholesterolemia, Hx Hypertension Denies: Hx Heart Attack Pulmonary Medical History: Denies: Hx Asthma, Hx Bronchitis, Hx COPD, Hx Pneumonia, Hx Tuberculosis Neurological Medical History: Reports: Hx Cerebrovascular Accident - 2011,2013. Denies: Hx Seizures Endocrine Medical History: Reports: Hx Diabetes Mellitus Type 1, Hx Diabetes Mellitus Type 2 Renal/ Medical History: Reports: Hx End Stage Renal Disease, Hx Hemodialysis - Mon, Wed, Fri. Denies: Hx Peritoneal Dialysis Musculoskeltal Medical History: Reports Hx Arthritis - mild Psychiatric Medical History: Reports: Hx Anxiety Past Surgical History: Reports: Hx Appendectomy, Hx Cardiac Surgery - right carotid endarterectomy, Hx Hysterectomy, Hx Tubal Ligation - Immunizations Immunizations up to date: Yes Hx Diphtheria, Pertussis, Tetanus Vaccination: Yes Physical Exam - Vital signs Vitals: Resp Pulse Ox 20 100 10/19/16 16:52 10/19/16 16:52 Course - Vital Signs Vital signs: Temp Pulse Resp BP Pulse Ox 19 72 L 10/19/16 18:00 10/19/16 18:00 - Laboratory Result Diagrams: 10/19/16 17:49 10/19/16 17:49 - Consults Dr. Villa Time consulted: 18:15 Reason for consultation: 10/19/16 18:15 Patient was discussed with Dr. Villa who states that the patient's foot needs to be operated on tonight because it is the source of her major infection. Dr. Sung Time consulted: 18:20 Reason for consultation: 10/19/16 18:20 Patient was discussed with Dr. Sung who is covering for Dr. Galindo who agrees that the patient's foot needs to be amputated, but is concerned that there might be a several hour delay so he advises to check if the patient would be able to stay here at [facility].
[2016-10-19 18:33] LABS: HEMATOCRIT 32.7 % (36.0-47.0); HEMOGLOBIN 10.3 g/dL (12.0-15.5); HGB HCT DIFFERENCE -1.8; MEAN CORPUSCULAR HEMOGLOBIN 28.3 pg (27.0-33.4); MEAN CORPUSCULAR HGB CONC 31.4 g/dL (32.0-36.0); MEAN CORPUSCULAR VOLUME 90 fl (80-97); RED BLOOD COUNT 3.62 10^6/uL (3.72-5.28); RED CELL DISTRIBUTION WIDTH 14.9 % (11.5-14.0)
[2016-10-19 18:37] LABS: PROTHROMBIN TIME 15.4 SEC (11.4-15.4)
--- NOTE | 2016-10-19 18:40 | ER Document Report ---
ED Extremity Problem, Lower - General Mode of Arrival: Medic TRAVEL OUTSIDE OF THE [place] IN LAST 30 DAYS: No - HPI Patient complains to provider of: Other - Necrotic left foot and altered mental status Location: Foot - left Occurred: This morning Context: Other - see notes above Associated symptoms: Other - see notes above <SHOSHANA TITUS - Last Filed: 10/19/16 20:15> <ADAM VAUGHN - Last Filed: 10/19/16 20:17> - General Chief Complaint: Altered Mental Status Stated Complaint: ALTERED MENTAL STATUS Time Seen by Provider: 10/19/16 17:26 Notes: 66-year-old female with history of end stage renal disease, hypertension, hyperlipidemia, anemia, and CVA presents to the ED via EMS accompanied by her daughter who states that the patient is behaving abnormally which became noticeable earlier today. Patient was dialyzed earlier today, but was not able to verbally respond as she usually is. The patient was sent to the ED to be evaluated for possible sepsis secondary to a necrotic left foot. Daughter states that the patient is scheduled for a left foot amputation in 5 days. Daughter reports that the patient might have injured her left 1st toe because her home nurse noticed a bruise to the side of her toe. The daughter reports that the patient's foot is more red and bruised than earlier this morning and explains that the lymphangitic streaking was not present earlier. Daughter states that the patient's food did not have a foul odor until yesterday. Vascular Surgeon: Dr. Galindo PCP: Dr. Christopher (SHOSHANA TITUS) - Related Data Allergies/Adverse Reactions: No Known Allergies Allergy (Verified 10/04/16 16:25) Home Medications: Current Home Medications Clopidogrel Bisulfate [Clopidogrel] 75 mg PO DAILY 10/19/16 [History] Lactulose [Lactulose] 30 ml PO DAILY 10/19/16 [History] Oxycodone HCl [Oxy-Ir 5 mg Tablet] 5 mg PO 5XDP PRN 10/19/16 [History] Sevelamer Carbonate [Renvela] 800 mg PO 5XD 10/19/16 [History] Tramadol HCl [Tramadol HCl] 50 mg PO Q12 10/19/16 [History] Past Medical History - General Information source: Relative - daughter - Social History Smoking Status: Never Smoker Chew tobacco use (# tins/day): No Frequency of alcohol use: None Drug Abuse: None Family History: Reviewed & Not Pertinent - Past Medical History Cardiac Medical History: Reports: Hx Coronary Artery Disease, Hx Hypercholesterolemia, Hx Hypertension Neurological Medical History: Reports: Hx Cerebrovascular Accident - 2011,2013. Denies: Hx Seizures Endocrine Medical History: Reports: Hx Diabetes Mellitus Type 1, Hx Diabetes Mellitus Type 2 Renal/ Medical History: Reports: Hx End Stage Renal Disease, Hx Hemodialysis - Mon, Wed, Sat Musculoskeltal Medical History: Reports Hx Arthritis - mild Psychiatric Medical History: Reports: Hx Anxiety Past Surgical History: Reports: Hx Appendectomy, Hx Cardiac Surgery - right carotid endarterectomy, Hx Hysterectomy, Hx Tubal Ligation - Immunizations Immunizations up to date: Yes Hx Diphtheria, Pertussis, Tetanus Vaccination: Yes <SHOSHANA TITUS - Last Filed: 10/19/16 20:15> Review of Systems - Review of Systems Constitutional: No symptoms reported EENT: No symptoms reported Cardiovascular: No symptoms reported Respiratory: No symptoms reported Gastrointestinal: No symptoms reported Genitourinary: No symptoms reported Female Genitourinary: No symptoms reported Musculoskeletal: See HPI, Other - Possible infection to the left foot Skin: No symptoms reported Hematologic/Lymphatic: No symptoms reported Neurological/Psychological: See HPI, Confusion -: Yes All other systems reviewed and negative <SHOSHANA TITUS - Last Filed: 10/19/16 20:15> Physical Exam <SHOSHANA TITUS - Last Filed: 10/19/16 20:15> <ADAM VAUGHN - Last Filed: 10/19/16 20:17> - Vital signs Vitals: Resp Pulse Ox 20 100 10/19/16 16:52 10/19/16 16:52 - Notes Notes: GENERAL: Alert. Patient moans and protests painful procedures. HEAD: Normocephalic, atraumatic. EYES: Pupils equal, round, and reactive to light. Extraocular movements intact. ENT: Oral mucosa moist, tongue midline. NECK: Full range of motion. Supple. Trachea midline. LUNGS: Clear to auscultation bilaterally, no wheezes, rales, or rhonchi. No respiratory distress. HEART: Regular rate and rhythm. No murmurs, gallops, or rubs. ABDOMEN: Non-distended. Bowel sounds present. EXTREMITIES: Moves all 4 extremities spontaneously, but moves the left lower extremity less. 2+ pitting edema with lymphangitic streaking to the beginning of the left calf. Barely palpable dorsalis pedis pulse to the left foot. No cyanosis. NEUROLOGICAL: Disoriented. Normal speech. SKIN: Left 5 toes are black which is consistent with necrosis due to decreased blood flow. Left great toe appears gangrenous. There left foot is cooler than the right. Now presents of a foul smell coming from the left foot. (SHOSHANA TITUS ) Course - Laboratory Result Diagrams: 10/19/16 17:49 10/19/16 18:49 - Consults Dr. Villa Time consulted: 18:15 Dr. House Time consulted: 18:20 <SHOSHANA TITUS - Last Filed: 10/19/16 20:15> - Laboratory Result Diagrams: 10/19/16 17:49 10/19/16 18:49 <ADAM VAUGHN - Last Filed: 10/19/16 20:17> - Re-evaluation Re-evalutation: 10/19/16 18:59 Left foot is necrotic with cellulitis and lymphangitic streaking, there is gangrene beginning on the left great toe. I discussed this patient with Dr. Villa the surgeon on-call who came by and examined the patient in the emergency department, he feels that given the gangrene to the left foot this patient needs an urgent amputation. I did discuss the patient with Dr. Sung as well, Dr. Sung is the surgeon who is covering for the patient's regular surgeon Dr. Galindo. He agrees that the patient needs an expeditious amputation. Agrees that this would be better performed here for speed. Dr. Sung has agreed to accept the patient in transfer tomorrow morning for postoperative management including dialysis as we cannot do a dialysis at this hospital on the weekend. IV antibiotics have been started in the form of Zosyn and vancomycin. Dr. Villa is talking to the family and scheduling surgery now. Did perform an ultrasound-guided IV in the left antecubital fossa. Patient has poor vascular access at this time. There is a permacath for dialysis in her right chest. Blood was hemolyzed and is being redrawn by lab at this time. 10/19/16 20:16 CBC shows leukocytosis of 39.1, anemia with hemoglobin 10.3, INR slightly prolonged at 1.14, venous blood gas grossly unremarkable, chemistries show slightly potassium 3.5, chronic renal failure consistent with end-stage renal disease on hemodialysis, lactic acid is 2.1, urinalysis shows moderate blood and trace leukocyte esterase. Serum alcohol level is less than 10, urine drug screen negative. X-ray shows no acute process. (ADAM VAUGHN) - Vital Signs Vital signs: Temp Pulse Resp BP Pulse Ox 98.8 F 18 157/98 H 100 10/19/16 19:29 10/19/16 19:12 10/19/16 19:13 10/19/16 19:10 - Laboratory Laboratory results interpreted by me: 10/19/16 10/19/16 10/19/16 17:49 18:49 19:10 WBC 39.1 H* RBC 3.62 L Hgb 10.3 L Hct 32.7 L MCHC 31.4 L RDW 14.9 H Seg Neuts % (Manual) 81 H Band Neutrophils % 10 H Lymphocytes % (Manual) 2 L Abs Neuts (Manual) 35.6 H Abs Monocytes (Manual) 2.7 H Potassium 3.5 L Chloride 95 L Carbon Dioxide 33 H BUN 24 H Creatinine 3.01 H Est GFR ( Amer) 19 L Est GFR (Non-Af Amer) 16 L Glucose 130 H Direct Bilirubin 0.6 H Alkaline Phosphatase 158 H Albumin 3.4 L Urine Protein >=500 H Urine Blood MODERATE H Ur Leukocyte Esterase TRACE H - EKG Interpretation by Me Additional EKG results interpreted by me: 10/19/16 19:01 EKG shows sinus rhythm at a rate of 99, normal axis, rapid R-wave progression, normal intervals, no ST segment elevations or depressions, there is T-wave inversions in aVL and T-wave flattening 1 per my interpretation. (ADAM VAUGHN) - Consults Dr. Villa Reason for consultation: 10/19/16 18:15 Patient was discussed with Dr. Villa who states that the patient's foot needs to be operated on tonight because it is the source of her major infection. 10/19/16 18:52 Dr. Villa was informed that there will be a several hour delay to [facility] and he agrees to admitting the patient and performing the amputation here. Patient will be transferred to [facility] following the surgery since we do not have any dialysis beds. 10/19/16 19:07 Dr. Villa will preform the surgery tonight and agrees to transfer the patient tomorrow morning to [facility]. (SHOSHANA TITUS) Dr. House Reason for consultation: 10/19/16 18:20 Patient was discussed with Dr. House who is covering for Dr. Galindo who agrees that the patient's foot needs to be amputated, but is concerned that there might be a several hour delay so he advises to check if the patient would be able to stay here at [facility]. 10/19/16 19:06 Dr. House accepts the patient post-op for dialysis, antibiotics and other revisions and agrees to transfer the patient tomorrow morning. (SHOSHANA TITUS) Critical Care Note - Critical Care Note Total time excluding time spent on procedures (mins): 40 <ADAM VAUGHN - Last Filed: 10/19/16 20:17> Discharge <SHOSHANA TITUS - Last Filed: 10/19/16 20:15> - Discharge Admitting Provider: Surgicalist - [facility] Admitted: OR <ADAM VAUGHN - Last Filed: 10/19/16 20:17> - Discharge Clinical Impression: Gangrene of left foot, ESRD (end stage renal disease) on dialysis, Cellulitis of foot, left Altered mental status Qualifiers: Altered mental status type: stupor Qualified Code(s): R40.1 - Stupor Condition: Fair Disposition: ADMITTED INPATIENT Scribe Attestation: 10/19/16 20:17 I personally performed the services described in the documentation, reviewed and edited the documentation which was dictated to the scribe in my presence, and it accurately records my words and actions. (ADAM VAUGHN) Scribe Documentation - Scribe Written by Elen:: Elen Peck, 10/19/20161952 acting as scribe for :: Rashad <SHOSHANA TITUS - Last Filed: 10/19/16 20:15>
--- NOTE | 2016-10-19 18:56 | RADIOLOGY REPORT (SQ) ---
EXAM DESCRIPTION: CHEST SINGLE VIEW COMPLETED DATE/TIME: 10/19/2016 6:46 pm REASON FOR STUDY: altered mental status COMPARISON: 10/04/2016 EXAM PARAMETERS: NUMBER OF VIEWS: One view. TECHNIQUE: Single frontal radiographic view of the chest acquired. RADIATION DOSE: NA LIMITATIONS: None. FINDINGS: LUNGS AND PLEURA: No opacities, masses or pneumothorax. No pleural effusion. MEDIASTINUM AND HILAR STRUCTURES: No masses. Contour normal. HEART AND VASCULAR STRUCTURES: Heart normal in size. Normal vasculature. BONES: No acute findings. HARDWARE: A dual-lumen catheter remains in place on right. OTHER: No other significant finding. IMPRESSION: NO ACUTE RADIOGRAPHIC FINDING IN THE CHEST. TECHNICAL DOCUMENTATION: JOB ID: [id number]
[2016-10-19 19:07] LABS: BAND NEUTROPHILS % (MANUAL) 10 % (3-5); BASOPHILS % (MANUAL) 0 % (0-2); EOSINOPHILS % (MANUAL) 0 % (0-6); LYMPHOCYTES % (MANUAL) 2 % (13-45); TOTAL CELLS COUNTED 100
[2016-10-19 19:08] LABS: ANISOCYTOSIS SLIGHT
[2016-10-19 19:10] LABS: HYPOCHROMASIA SLIGHT; POIKILOCYTOSIS SLIGHT
[2016-10-19 19:11] LABS: PLATELET CLUMPS PRESENT; TARGET CELLS SLIGHT; TEAR DROP CELLS SLIGHT
[2016-10-19 19:12] LABS: TOXIC GRANULATION SLIGHT
[2016-10-19 19:34] LABS: APPEARANCE,URINE CLOUDY; BILIRUBIN,URINE NEGATIVE (NEGATIVE); GLUCOSE, URINE NEGATIVE (NEGATIVE); KETONES,URINE NEGATIVE (NEGATIVE); LEUKOCYTE ESTERASE,URINE TRACE (NEGATIVE); NITRITE,URINE NEGATIVE (NEGATIVE); PROTEIN,URINE >=500 mg/dL (NEGATIVE); URINE SPECIFIC GRAVITY 1.016; UROBILINOGEN,URINE NEGATIVE mg/dL (<2.0)
[2016-10-19 19:48] LABS: URINE BARBITURATES SCREEN NEGATIVE; URINE METHADONE SCREEN NEGATIVE; URINE OPIATES LOW NEGATIVE; URINE PHENCYCLIDINE SCREEN NEGATIVE
[2016-10-19 19:54] LABS: ALANINE AMINOTRANSFERASE 17 U/L (9-52); ALBUMIN 3.4 g/dL (3.5-5.0); ALKALINE PHOSPHATASE 158 U/L (38-126); ANION GAP 13 (5-19); ASPARTATE AMINO TRANSFERASE 34 U/L (14-36); BILIRUBIN,DIRECT 0.6 mg/dL (0.0-0.4); BILIRUBIN,TOTAL 0.7 mg/dL (0.2-1.3); BLOOD UREA NITROGEN 24 mg/dL (7-20); CALCIUM 9.6 mg/dL (8.4-10.2); CARBON DIOXIDE 33 mmol/L (22-30); CHLORIDE 95 mmol/L (98-107); CREATININE RESULT 3.01 mg/dL (0.52-1.25); GLUCOSE 130 mg/dL (75-110); POTASSIUM 3.5 mmol/L (3.6-5.0); TOTAL PROTEIN 7.5 g/dL (6.3-8.2)
[2016-10-19 19:55] LABS: VENOUS BLOOD BASE EXCESS 3.9 mmol/L; VENOUS BLOOD HCO3 30.5 mmol/L (20-32); VENOUS BLOOD PCO2 51.6 mmHg (35-63); VENOUS BLOOD PH 7.39 (7.30-7.42)
[2016-10-19 19:57] LABS: ALCOHOL < 10 mg/dL (NONE DETECTED)
[2016-10-19] MEDS ORDERED: HYDROMORPHONE HCL INJ/PF 2 MG/ML AMPULE ONE (20:00)
[2016-10-19] MEDS ORDERED: EPHEDRINE SULFATE INJ 50 MG/1 ML AMPULE ONE (20:01)
[2016-10-19] MEDS ORDERED: PROPOFOL INJ 200 MG/20 ML VIAL IV ONE (20:01)
[2016-10-19] MEDS ORDERED: FENTANYL CITRATE INJ/PF 100 MCG/2 ML AMPUL ONE ×2 (20:01)
[2016-10-19] MEDS ORDERED: ONDANSETRON HCL INJ/PF 4 MG/2 ML SDV ONE (20:01)
[2016-10-19] MEDS ORDERED: FENTANYL CITRATE INJ/PF 100 MCG/2 ML AMPUL IV PRN ×3 (21:05)
--- NOTE | 2016-10-19 21:08 | HISTORY AND PHYSICAL E ---
History and Physical NAME: JESSI CAMARGO : 1950 AGE: 66Y ADMITTED: 10/19/2016 ROOM: ED60 CHIEF COMPLAINT: Foul smelling drainage from the left foot. HISTORY OF PRESENT ILLNESS: This is a 66-year-old female with a history of diabetes mellitus and hemodialysis, had balloon angioplasty of the left femoral artery a month ago, which apparently occluded. She was seen last week at the surgeon's office and scheduled for an amputation of the left foot next week. However, after her hemodialysis today the family noted dark discoloration of the left big toe with foul smelling discharge. She was then brought to the emergency room after hemodialysis. In the emergency room she was noted to have red streaking from the ankle up to below the knee area. The toes noted to be gangrenous and cool. PAST HISTORY: 1. History of CVA x2. One in 2009 and another one in 2014. She just had some speech abnormality that appears to have been resolved, according to the family. 2. She has been on insulin in the past for diabetes but with diet blood sugar has been controlled and stopped the insulin about 2 years ago. 3. She was started on hemodialysis about a year ago on Saturday, Saturday, Fridays for end-stage renal disease. 4. She had an initial angioplasty of the left superficial femoral artery at [facility] in April of this year and again about a month ago. This was noted to have re-occluded and seen at the surgeon's office this week and scheduled for amputation next week. MEDICATIONS: The patient on hydralazine, Plavix, and aspirin. SOCIAL HISTORY: Denies smoking, drinking, or drug use. Since a month ago she is not ambulatory. Prior to that the family claims she was able to walk. REVIEW OF SYSTEMS: The patient is not ambulatory. Appears to have some pains along the left foot. The patient is somewhat lethargic and difficult to obtain very good history and most of the history is obtained from the 2 daughters, but they claim patient apparently without any chest pain, no shortness of breath, diarrhea nor constipation. PHYSICAL EXAMINATION: GENERAL: This is a 66-year-old -Mong[place] female quite alert but not very responsive. HEENT: Neck is supple, no thyromegaly. LUNGS: Clear. HEART: Slightly tachycardic about 105 permanent. ABDOMEN: Soft, nontender. EXTREMITIES: The left distal foot for all the 5 toes and just proximal to the toes is noted to have dark discoloration and cool. There is actually gangrene with foul smelling discharge. There is red streaking from the ankle up to the knee anteriorly. IMPRESSION: 1. Gangrene of the left foot with cellulitis. 2. Diabetes mellitus diet controlled. 3. End-stage renal disease on hemodialysis. The patient just had dialysis today. PLAN: 1. To hydrate gently and start IV antibiotics. 2. Guillotine amputation of the left below knee. 3. ER spoke to Dr. Cortes the surgeon at [facility], who will admit her tomorrow post amputation. He agreed that or suggested to have the first phase of the amputation done here at [place] and they will make a formal amputation the next few days at [facility]. DICTATING PHYSICIAN: ASHLY DE M.D. [id number] PHY#: [id number] ID: [id number] JOB#: [id number] ACCT: [id number] cc:ASHLY DE M.D. >
[2016-10-19] MEDS ORDERED: LIDOCAINE 1% INJ-PF (10 MG/ML) 30 ML SDV ONE (22:11)
--- NOTE | 2016-10-19 22:33 | OPERATIVE REPORT E ---
Operative Report NAME: JESSI CAMARGO : 1950 AGE: 66Y DATE OF SURGERY: 10/19/2016 ROOM: 608 PREOPERATIVE DIAGNOSIS: Gangrene of the left foot. POSTOPERATIVE DIAGNOSIS: Gangrene of the left foot. OPERATION: Guillotine amputation of left distal below knee. SURGEON: ASHLY DE M.D. ANESTHESIA: General. INDICATION: This is a 66-year-old female who was noted to have gangrene of the left foot today. She had her dialysis this morning and subsequently sent to the emergency room for foul-smelling discharge from the left toes. In the emergency room she was noted to have gangrene of the left distal foot with red streaking from the ankle to just below the knee anterior aspect. Her white count is noted to be 39.1. I have discussed with the ER physician discussed her case with the [place] surgeon who is taking care of her, and the surgeon suggested doing a guillotine amputation of the left foot today at [place] and the patient can be transferred to *------* Hospital in [place] tomorrow morning. They will eventually do a formal xpeuz-ssh-kypu amputation once the infection has been well controlled. DESCRIPTION OF PROCEDURE: After adequate general anesthesia, the left lower leg was then prepped and draped in the usual sterile fashion. Appropriate timeout was done. Next, the distal third of the lower leg was then cut with a #10 blade through the skin circumferentially. Next, anterior muscles were then divided with the use of electrocautery. The medial muscle was also divided with cautery. The saphenous vein was ligated with 0-Vicryl ties. Next, the tibia was then divided transversely with an electric saw. The fibula was then divided with double-action scissors. The posterior muscles were then transected. There was some oozing from the area of the peroneal vessels that were suture ligation with 0 Vicryl. The anterior tibial and posterior tibial appeared to be occluded. Some of the muscle bleeders were then coagulated with cautery. The muscles appeared to be viable. No evidence of abscess; however, some of the subcutaneous area with edema. Next, the stump was then plastered with Xeroform gauze and dressed with a bulky 4 x4, ABD, Kerlix and raghavendra bandage. The patient tolerated the procedure well. Needle, instruments and sponge count were all correct and estimated blood loss about 20 mL. The patient then brought to the intensive care unit in guarded condition and extubated. DICTATING PHYSICIAN: ASHLY DE M.D. [id number] PHY#: [id number] ID: [id number] JOB#: [id number] ACCT: [id number] cc:ASHLY DE M.D. >
[2016-10-19 23:19] LABS: WHITE BLOOD COUNT 39.1 10^3/uL (4.0-10.5)
--- NOTE | 2016-10-19 23:29 | TRANSFER SUMMARY E ---
Transfer Summary NAME: JESSI CAMARGO : 1950 AGE: 66Y ADMITTED: 10/19/2016 TRANSFERRED: 10/19/2016 FINAL DIAGNOSES: 1. Gangrene of the left foot. 2. End-stage renal disease on hemodialysis. 3. Diabetes mellitus, diet controlled. 4. Hypertension. PROCEDURE DONE: Left jsnab-kur-wjgh amputation (guillotine amputation). SUMMARY: This is a 66-year-old female on hemodialysis. She had a previous balloon angioplasty of the left femoral artery about a month ago but unfortunately occluded. She was supposed to have an amputation of the left foot next week, but patient was noted to have dark discoloration of the left big toe yesterday by her family. She was then brought to have dialysis today and noted to have foul-smelling drainage from the left toes and subsequently sent to the ED at [place] by hemodialysis team. She was noted to have gangrene of the left toes and red streaking from the ankle up to the below knee area. The toes are noted to be cool and gangrenous. Her white count is up to 39,000. Her surgeon at [facility] was called and they suggested doing a guillotine amputation tonight and then transfer the patient tomorrow to [facility] for eventual definitive amputation. Amputation was then on the night of admission on 10/19/16. Postoperatively the patient is stable in the intensive care unit. However, she needed better IV access and, therefore, a right femoral vein triple-lumen catheter was then inserted. The patient will be transferred to [facility] tomorrow morning under the service of Dr. Sung, the vascular surgeon. The patient had a dose of 1 gm of vancomycin around 8 p.m. and also a dose of Zosyn. She will have another dose of Zosyn just prior to transfer to [facility]. She is also being transferred because we do not have any hemodialysis access on the weekend at [facility]. She might need another hemodialysis this weekend if her renal function worsens or her potassium goes up. DICTATING PHYSICIAN: ASHLY DE M.D. [id number] PHY#: [id number] ID: [id number] JOB#: [id number] ACCT: [id number] cc:ASHLY DE M.D. >
--- NOTE | 2016-10-19 23:38 | OPERATIVE REPORT E ---
Operative Report NAME: JESSI CAMARGO : 1950 AGE: 66Y DATE OF SURGERY: 10/19/2016 ROOM: 608 PREOPERATIVE DIAGNOSIS: Poor veins and contraindication for IV access in upper extremities since patient is a dialysis patient and status post left qqxbf-jaf-xlyp amputation. POSTOPERATIVE DIAGNOSIS: Poor veins and contraindication for IV access in upper extremities since patient is a dialysis patient and status post left lefto-toi-pcuy amputation. OPERATION: Placement of right common femoral vein catheter under ultrasound guidance. SURGEON: ASHLY DE M.D. ANESTHESIA: Local. INDICATION: This is a 66-year-old female who just underwent left BKA for gangrene of the left foot. She needed IV access for medications in the intensive care unit. DESCRIPTION OF PROCEDURE: Patient was placed in a supine position and the right groin prepped and draped in the usual sterile fashion. With the use of the ultrasound, the common femoral vein was then identified and subsequently punctured. A guidewire was passed through the needle into the vein towards the area of the inferior vena cava. The needle was removed and the puncture site enlarged with a dilator. Next, a triple-lumen catheter was then passed through the guidewire and inserted all the way close to the hub of the catheter to a distance of about 19 cm. Next, the catheter was then anchored to the skin with 3-0 Prolene. A Biopatch was placed at the puncture site and a sterile transparent dressing placed over the catheter. All the 3 ports were then aspirated of blood easily and injected saline easily. The patient tolerated the procedure well. DICTATING PHYSICIAN: ASHLY DE M.D. [id number] PHY#: [id number] ID: [id number] JOB#: [id number] ACCT: [id number] cc:ASHLY DE M.D. >
[2016-10-19] MEDS ORDERED: PIPERACILLIN/TAZOBACTAM 2.25 GM VIAL IV PRN (23:39)
[2016-10-20] MEDS ORDERED: NORMAL SALINE 1000 ML 1,000 ML IV PRN (00:09)
[2016-10-20] MEDS ORDERED: PIPERACILLIN SODIUM/TAZOBACTAM 2.25 GM in NORMAL SALINE 50 ML IV SCH ×4 (02:00→06:00)
[2016-10-20] MEDS ORDERED: PIPERACILLIN/TAZOBACTAM 2.25 GM VIAL IV ONE (03:08)
[2016-10-20] MEDS: MORPHINE SULFATE 10 MG/ML INJ IV PRN ×2 (05:28→08:46)
[2016-10-20 05:45] LABS: HEMATOCRIT 24.4 % (36.0-47.0); HGB HCT DIFFERENCE -1.3; MEAN CORPUSCULAR HEMOGLOBIN 28.6 pg (27.0-33.4); MEAN CORPUSCULAR HGB CONC 31.6 g/dL (32.0-36.0); MEAN CORPUSCULAR VOLUME 91 fl (80-97); RED BLOOD COUNT 2.69 10^6/uL (3.72-5.28); WHITE BLOOD COUNT 19.9 10^3/uL (4.0-10.5)
[2016-10-20 05:52] LABS: PROTHROMBIN TIME 16.9 SEC (11.4-15.4)
[2016-10-20 05:56] LABS: ANION GAP 11 (5-19); BLOOD UREA NITROGEN 27 mg/dL (7-20); CALCIUM 8.4 mg/dL (8.4-10.2); CARBON DIOXIDE 26 mmol/L (22-30); CHLORIDE 99 mmol/L (98-107); CREATININE RESULT 3.27 mg/dL (0.52-1.25); GLUCOSE 97 mg/dL (75-110); POTASSIUM 3.3 mmol/L (3.6-5.0); SODIUM 135.8 mmol/L (137-145)
[2016-10-20 06:15] LABS: HEMOGLOBIN 7.7 g/dL (12.0-15.5)
--- NOTE | 2016-10-20 09:16 | PDOC PROGRESS REPORT ---
Subjective Progress Note for:: 10/20/16 Subjective:: Patient is awake, follows simple commands, however she is disoriented to time situation place. Her pain appears controlled. Physical Exam Vital Signs: Temp Pulse Resp BP Pulse Ox 98.5 F 86 8 L 152/61 H 99 10/20/16 04:00 10/19/16 21:40 10/20/16 06:17 10/20/16 06:17 10/20/16 06:17 Intake & Output 10/19/16 10/20/16 10/21/16 06:59 06:59 06:59 Intake Total 136 Output Total 0 Balance 136 Weight 55.7 kg Vascular exam: PRESENT: other - Left guillotine BKA stump dressing with some drainage. The leg knee and proximal BK are warm. I can palpate strong femoral pulses; I cannot palpate a popliteal pulse. Results Laboratory Results: 10/20/16 05:20 10/20/16 05:20 10/19/16 10/20/16 10/20/16 23:10 05:20 05:20 WBC 19.9 H RBC 2.69 L Hgb 7.7 L D Hct 24.4 L MCV 91 MCH 28.6 MCHC 31.6 L RDW 15.0 H Plt Count 289 Sodium 135.8 L Potassium 3.3 L Chloride 99 Carbon Dioxide 26 Anion Gap 11 BUN 27 H Creatinine 3.27 H Est GFR ( Amer) 17 L Est GFR (Non-Af Amer) 14 L Glucose 97 Lactic Acid 0.9 Calcium 8.4 Impressions: Chest X-Ray 10/19/16 17:56 IMPRESSION: NO ACUTE RADIOGRAPHIC FINDING IN THE CHEST. Assessment & Plan - Diagnosis (1) Gangrene of left foot Is this a current diagnosis for this admission?: YesPlan: Gangrene left foot status post guillotine amputation left rydgz-pia-wvjf by Dr. Micah willson p.m., with favorable hemodynamic and septic control parameters. Plan: 1. Continue supportive therapy; anticipate dressing change later today 2. We will recruit internal medicine and nephrology consultants given patient' s multiple comorbidities 3. Currently arrangements have been made for patient to be transferred to [facility] so we will likely support that decision.
[2016-10-20 10:18] VITALS: BP 154/59
--- NOTE | 2016-10-20 17:38 | EKG REPORT ---
SEVERITY:- ABNORMAL ECG - SINUS RHYTHM NONSPECIFIC T ABNORMALITIES, LATERAL LEADS : Confirmed by: Sammie Dunlap 20-Oct-2016 17:38:00
[2016-10-22 17:06] LABS: PATH REVIEW PATHOLOGIST REVIEWED
== END 2016-10-20 11:40 | disposition short-term general hospital (02) | DRG 239 ==
LOC: ER 16:22 → UNDOADMIN 19:36 → EH 19:36 → ICU 21:40
PROVIDERS: ADMIT Surgery; ATTEND Surgery
PROC: 06H033Z Insertion of Infusion Device into Inferior Vena Cava, Percutaneous Approach (ICD-10-PCS; 2016-10-19)
PROC: B549ZZA Ultrasonography of Inferior Vena Cava, Guidance (ICD-10-PCS; 2016-10-19)
PROC: 0Y6J0Z2 Detachment at Left Lower Leg, Mid, Open Approach (ICD-10-PCS; principal; 2016-10-19 20:30)
DX: I96 Gangrene, not elsewhere classified (principal); N18.6 End stage renal disease; L03.116 Cellulitis of left lower limb; I12.0 Hypertensive chronic kidney disease with stage 5 chronic kidney disease or end stage renal disease; E78.5 Hyperlipidemia, unspecified; E11.9 Type 2 diabetes mellitus without complications; D64.9 Anemia, unspecified; R41.82 Altered mental status, unspecified; Z99.2 Dependence on renal dialysis; Z86.73 Personal history of transient ischemic attack (TIA), and cerebral infarction without residual deficits; Z79.01 Long term (current) use of anticoagulants; Z79.82 Long term (current) use of aspirin; Z79.899 Other long term (current) drug therapy
CPT/HCPCS: 1482; 36415; 51701; 71010; 80048; 80053; 80307; 81001; 82803; 83605; 83735; 85025; 85027; 85610; 86850; 86900; 86901; 87040; 87077; 87086; 87186; 88307; 93005; 93010; 96365; 99291; C1751; J0330; J1170; J2270; J2405; J2543; J2704; J3010; J3490; J7030